=== PATIENT | male | born 1990 | race Caucasian/White ===

== ENCOUNTER 2023-02-23 12:42 | Emergency (ER) | payer SELFPAY ==
--- NOTE | 2023-02-23 12:56 | ERPHSYRPT ---
- History of Present Illness Time Seen by Provider: 02/23/23 12:56 Source: patient Exam Limitations: no limitations Physician History: This is a morbidly obese 32-year-old white male patient who was running up the stairs playing with his children when he twisted his right knee. He fell when he attempted to put weight on the right knee while ambulating. He can flex and extend the knee but the right knee hurts when he attempts to bear weight. Patient also has a second issue and that is 2 to 3-day history of left lower abdominal wall cellulitis. 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 He has been taking old Keflex prescription for the last 2 days. The site is not worsening but its not resolving either. He has minimal pain present. He is unsure if there was an insect bite to this area. Patient has a history of diabetes, asthma and hypertension. He denies chest pain and he denies shortness of breath. Occurred: just prior to arrival Reason for Fall: tripped Injuries/Pain Location: lower extremity Loss of Consciousness: no loss of consciousness (Right knee) Severity of Pain-Max: mild (To moderate) Severity of Pain-Current: mild (To moderate) Modifying Factors: Improves With: other (Attempting to bear weight worsens pain) Allergies/Adverse Reactions: amoxicillin Allergy (Verified 02/23/23 13:57) Home Medications: Albuterol 8 gm Mdi Hfa [Ventolin Hfa MDI] 2 puffs DAILY 09/20/15 [History] Aspirin 81 gm Chew [Baby Aspirin 81 mg Chew] 1 ea DAILY 09/20/15 [History] Lisinopril 10 mg [Zestril 10 MG] 1 ea DAILY 09/20/15 [History] Hx Tetanus, Diphtheria Vaccination/Date Given: Yes Hx Influenza Vaccination/Date Given: Yes Hx Pneumococcal Vaccination/Date Given: No Travel Risk - International Travel Have you traveled outside of the country in past 3 weeks: No - Coronavirus Screening Are you exhibiting any of the following symptoms?: No Close contact with a COVID-19 positive Pt in past 14-21 Days: No - Review of Systems Constitutional: No Symptoms Eyes: No Symptoms Ears, Nose, & Throat: No Symptoms Respiratory: No Symptoms Cardiac: No Symptoms Abdominal/Gastrointestinal: No Symptoms Genitourinary Symptoms: No Symptoms Musculoskeletal: Fall, Injury (Right knee) Skin: Cellulitis Neurological: No Symptoms (Left lower abdominal wall) Psychological: No Symptoms Endocrine: No Symptoms Hematologic/Lymphatic: No Symptoms Immunological/Allergic: No Symptoms All Other Systems: Reviewed and Negative - Past Medical History Pertinent Past Medical History: Yes Cardiac History: Myocardial Infarction ([place]) Respiratory History: Asthma Other Medical History: [place] at 20 years old - Past Surgical History Past Surgical History: Yes Other Surgical History: Tonsillectomy, Transesopageal echocardiogram. - Social History Smoking Status: Never smoker Exposure to second hand smoke: No Drug Use: none Patient Lives Alone: No - Nursing Vital Signs Nursing Vital Signs: Initial Vital Signs Temperature 97.5 F 02/23/23 14:00 Pulse Rate 71 02/23/23 14:00 Respiratory Rate 18 02/23/23 14:00 Blood Pressure 130/101 02/23/23 14:00 O2 Sat by Pulse Oximetry 96 02/23/23 14:00 Pain Scale Pain Intensity 5 - [place] Coma Score Best Eye Response ([place]): (4) open spontaneously Best Verbal Response ([place]): (5) oriented Best Motor Response ([place]): (6) obeys commands Gurwinder Total: 15 - Physical Exam General Appearance: no apparent distress, alert, anxiety, obese Head Injury: no evidence of injury Eye Exam: PERRL/EOMI, eyes nml inspection ENT Exam: airway nml, nml ext.inspection Neck Exam: supple, trachea midline, full range of motion, normal alignment, normal inspection Respiratory/Chest Exam: normal breath sounds, No chest tenderness, No respiratory distress Gastrointestinal Exam: soft, normal bowel sounds, No tenderness Rectal Exam: not done Back Exam: normal inspection, normal range of motion, No CVA tenderness, No vertebral tenderness Extremity Exam: normal inspection, normal range of motion, pelvis stable Neurologic Exam: alert, oriented x 3, cooperative, poultry boner II-XII nml as tested, normal mood/affect, nml cerebellar function, nml station & gait, sensation nml Skin Exam: warm, dry, other (cellulitis of left lower abdominal wall) SpO2 Interpretation: normal O2 Delivery: Room Air - Course Nursing assessment & vital signs reviewed: Yes Ordered Tests: Active Orders 24 hr Category Date Time Status KNEE (1 OR 2 VIEW) Stat Exams 02/23/23 14:22 Completed - Progress Progress: improved, pain not gone completely Progress Note: 02/23/23 15:36 The x-ray was interpreted by the radiologist. There is no evidence of any acute fracture or dislocation. This patient's medical issue is 1 of low complexity. The level complexity in the work-up performed is based on review of the patient's past medical history, review the patient's medication list, review of the patient's drug allergy list, history of present illness and physical findings on examination. The work-up in this patient includes a knee x-ray of the right side. We will also provide the patient with a Percocet 5/325 pain medication and Bactrim DS to treat his cellulitis of the abdominal wall. Counseled pt/family regarding: diagnosis, need for follow-up, rad results Medical Desision Making - Diagnostic Testing Diagnostic test were ordered, analyzed, and reviewed by me: Yes Radiological Interpretation: Reviewed by me, Teleradiologist Report - Risk of complications The pt has a mod risk of morbidity or mortality based on: Need for prescription drug management - Departure Departure Disposition: Home Clinical Impression: Right knee sprain, Cellulitis of abdominal wall Condition: Stable Critical Care Time: No Referrals: [facility] [Primary Care Provider] - Follow up/PCP as directed Additional Instructions: Ice pack to right knee 3 times a day for the next 48 hours. If the pain persist beyond this time, you may follow-up in the [facility] orthopedic clinic Monday through Monday 8 AM to 10 AM for further evaluation management. It is a walk-in clinic and you do not need to have an appointment. Take your medication as prescribed. Call your primary care provider tomorrow, 02/24/2023, for further evaluation and management. Continue your ibuprofen as prescribed. Prescriptions: Oxycodone HCl/Acetaminophen [Percocet 5-325 mg Tablet] 1 each PO Q8H PRN PRN #6 tablet MDD 3 PRN Reason: Moderate To Severe Pain Smz/Tmp Ds Tablet [Bactrim Ds Tablet] 1 udtab PO BID #14 tablet
[2023-02-23 14:02] VITALS: RESP 18
--- NOTE | 2023-02-23 14:48 | XRAY ---
Indication: Pain following fall. Comparison: None 2 view right knee demonstrates mild anterolateral subcutaneous venous varicosities. No other bony, articular, or soft tissue abnormalities.
[2023-02-23] MEDS ORDERED: PERCOCET TABLET 5/325MG PO STA (15:41)
[2023-02-23] MEDS ORDERED: BACTRIM DS TABLET PO ONE ×2 (15:41→15:57)
[2023-02-23] MEDS ORDERED: PERCOCET TABLET 5/325MG ONE (15:57)
[2023-02-23 16:08] VITALS: PULSE 83; TEMP 98; O2SAT 100
[2023-02-23 16:09] VITALS: BP 90/52
== END 2023-02-23 16:08 | disposition home or self-care (01) ==
LOC: ED 12:42
DX: S83.91XA Sprain of unspecified site of right knee, initial encounter (principal); X50.0XXA Overexertion from strenuous movement or load, initial encounter; Y93.83 Activity, rough housing and horseplay; L03.311 Cellulitis of abdominal wall; E11.9 Type 2 diabetes mellitus without complications; I10 Essential (primary) hypertension; Z79.891 Long term (current) use of opiate analgesic; Z79.899 Other long term (current) drug therapy
CPT/HCPCS: 73560; 99283; 99291; A9270-GY

== ENCOUNTER 2024-07-14 10:58 | Emergency (ER) | payer OTHER ==
--- NOTE | 2024-07-14 11:03 | ERPHSYRPT ---
- History of Present Illness Time Seen by Provider: 07/14/24 11:02 Source: patient, family Exam Limitations: no limitations Physician History: Pt had onset of cough with vomiting and fever, today and came to ER for evaluation today. Coughing caused some pain with cough in abdomen but none at rest and nontender to palpation without peritoneal signs. Discussed with pt and available family risks and benefits of testing/Tx including swabs for Covid, RSV, Flu and Strep, and zofran and duoneb, and they wish to proceed so these are ordered and he wishes to hold off on CXR for now. Results discussed with pt and available family. Timing/Duration: today Cough Quality/Degree: dry cough Possible Cause: no prior episodes Modifying Factors: Improves With: coughing Associated Symptoms: fever, cough, headache, nasal congestion, No shortness of breath Allergies/Adverse Reactions: amoxicillin Allergy (Verified 07/14/24 11:17) Hx Tetanus, Diphtheria Vaccination/Date Given: Yes Hx Influenza Vaccination/Date Given: Yes Hx Pneumococcal Vaccination/Date Given: No - Review of Systems Constitutional: Fever, No Chills Eyes: No Symptoms Ears, Nose, & Throat: No Symptoms, No Throat Pain, No Throat Swelling, No Painful Swallowing, No Stridor Respiratory: Cough, No Dyspnea Cardiac: No Chest Pain, No Edema, No Syncope Abdominal/Gastrointestinal: Nausea, Vomiting, No Abdominal Pain, No Diarrhea Genitourinary Symptoms: No Dysuria Musculoskeletal: No Back Pain, No Neck Pain Skin: No Rash Neurological: Headache, No Dizziness, No Focal Weakness, No Sensory Changes Psychological: No Symptoms Endocrine: No Symptoms Hematologic/Lymphatic: No Symptoms Immunological/Allergic: No Symptoms All Other Systems: Reviewed and Negative - Past Medical History Pertinent Past Medical History: Yes Cardiac History: Myocardial Infarction ([place]) Respiratory History: Asthma Endocrine Medical History: Diabetes Type II Other Medical History: [place] at 20 years old - Past Surgical History Past Surgical History: Yes Other Surgical History: Tonsillectomy, Transesopageal echocardiogram. - Social History Smoking Status: Never smoker Exposure to second hand smoke: No Drug Use: none Patient Lives Alone: No - Nursing Vital Signs Nursing Vital Signs: Initial Vital Signs Blood Pressure 120/87 07/14/24 11:11 O2 Sat by Pulse Oximetry 99 07/14/24 11:11 Pain Scale Pain Intensity 7 - Physical Exam General Appearance: no apparent distress, alert Eye Exam: PERRL/EOMI, eyes nml inspection Ears, Nose, Throat Exam: normal ENT inspection, TMs normal, pharynx normal, moist mucous membranes Neck Exam: normal inspection, non-tender, supple, full range of motion Respiratory Exam: normal breath sounds, lungs clear, No respiratory distress Cardiovascular Exam: regular rate/rhythm, normal heart sounds Gastrointestinal/Abdomen Exam: soft, No tenderness, No distention, No mass, No guarding, No pulsatile mass, No rebound Back Exam: normal inspection, No CVA tenderness, No vertebral tenderness Extremity Exam: normal inspection, normal range of motion Neurologic Exam: alert, oriented x 3, cooperative, normal mood/affect, sensation nml, No motor deficits Skin Exam: normal color, warm, dry, No rash Lymphatic Exam: No adenopathy SpO2 Interpretation: normal SpO2: 99 O2 Delivery: Room Air - Course Nursing assessment & vital signs reviewed: Yes Ordered Tests: Active Orders 24 hr Category Date Time Status Pulse Oximetry (ED) STAT Care 07/14/24 11:43 Active MONO SCREEN Stat Lab 07/14/24 Completed Respiratory Therapy Assessment DAILY RT 07/14/24 12:15 Active Medication Summary Discontinued Medications Generic Name Dose Route Start Last Admin Trade Name Freq PRN Reason Stop Dose Admin Hydrocodone Bitart/Acetaminophen 2 tab 07/14/24 13:05 07/14/24 13:13 Hydrocodone/Apap 5/325 1 Tab Tablet PO 07/14/24 13:06 Not Given STAT ONE Hydrocodone Bitart/Acetaminophen Confirm 07/14/24 13:05 Hydrocodone/Acetaminophen 5 Ml Udcup Administered 07/14/24 13:06 Dose 10 ml .ROUTE .STK-MED ONE Hydrocodone Bitart/Acetaminophen 10 ml 07/14/24 13:09 07/14/24 13:12 Hydrocodone/Acetaminophen 5 Ml Udcup PO 07/14/24 13:10 10 ml STAT STA Administration Albuterol/Ipratropium 3 ml 07/14/24 11:45 07/14/24 12:12 Ipratropium/Albuterol Sulfate 3 Ml Ampul.Neb IH 07/14/24 11:46 3 ml STAT ONE Administration Albuterol/Ipratropium Confirm 07/14/24 12:11 Ipratropium/Albuterol Sulfate 3 Ml Ampul.Neb Administered 07/14/24 12:12 Dose 3 ml IH .STK-MED ONE Ondansetron HCl 4 mg 07/14/24 11:45 07/14/24 12:02 Zofran 4 Mg/Udtablet Orally Disintegrating PO 07/14/24 11:46 4 mg STAT ONE Administration Ondansetron HCl Confirm 07/14/24 12:01 Zofran 4 Mg/Udtablet Orally Disintegrating Administered 07/14/24 12:02 Dose 4 mg .ROUTE .STK-MED ONE Lab/Rad Data: Laboratory Results 07/14/24 07/14/24 Range/Units Unknown 12:20 Monoscreen NEGATIVE (NEGATIVE) Influenza Type A Ag POSITIVE A (NEGATIVE) Influenza Type B Ag NEGATIVE (NEGATIVE) RSV (PCR) NEGATIVE (NEGATIVE) SARS-CoV-2 (PCR) NEGATIVE (NEGATIVE) Group A Strep Antibody NOT DETECTED (NEGATIVE) - Progress Progress: improved, re-examined Air Movement: good Progress Note: 07/14/24 14:21 pt feels better now without nausea or abd tenderness or pain or shortness of breath. Blood Culture(s) Obtained: No Antibiotics given: No Counseled pt/family regarding: lab results, diagnosis, need for follow-up Medical Desision Making - Independent Historian Additional History obtained from: Family - Discussion of managment Reviewed:: Test results, Need for additional workup Agreed on:: Treatment plan, need for follow-up - Departure Departure Disposition: Home Clinical Impression: Influenza A Condition: Good Critical Care Time: No Instructions: Cough, Adult (DC), Flu in adults - ED discharge instructions Additional Instructions: We are sending a prescription to treat your flu. Rest and drink lots of fluids. followup with your Dr. of not improving or Return meantime especially if short of breath, dizzy, vomitiing persists, trouble swallowing or any other concerns. Prescriptions: Oseltamivir 75 mg [Tamiflu 75MG Capsule] 75 mg PO BID #10 cap
[2024-07-14] MEDS ORDERED: ZOFRAN ODT 4 MG ONE (12:01)
[2024-07-14] MEDS: ZOFRAN ODT 4 MG PO ONE (12:02)
[2024-07-14] MEDS ORDERED: DUONEB 0.5-3 MG/3 ml Neb IH ONE (12:11)
[2024-07-14] MEDS: DUONEB 0.5-3 MG/3 ml Neb IH ONE (12:12)
[2024-07-14 13:02] LABS: Group A Strep NOT DETECTED (NEGATIVE)
[2024-07-14] MEDS ORDERED: HYDROCODONE-ACETAMIN 2.5-108/5 ML SOLUTION ONE (13:05)
[2024-07-14] MEDS: HYDROCODONE-ACETAMIN 2.5-108/5 ML SOLUTION PO STA (13:12)
[2024-07-14 13:13] LABS: INFLUENZA B NEGATIVE (NEGATIVE); RESPIRATORY SYNCTIAL VIRUS NEGATIVE (NEGATIVE); SARS-CoV-2 Xpert Express NEGATIVE (NEGATIVE)
[2024-07-14] MEDS: NORCO 5/325 MG PO ONE (13:13)
[2024-07-14 13:20] LABS: INFLUENZA A POSITIVE (NEGATIVE)
[2024-07-14 14:40] VITALS: BP 107/71; PULSE 110; RESP 18; O2SAT 98
== END 2024-07-14 14:39 | disposition home or self-care (01) ==
LOC: ED 10:58
DX: J10.1 Influenza due to other identified influenza virus with other respiratory manifestations (principal); R05.1 Acute cough; R11.2 Nausea with vomiting, unspecified; R50.9 Fever, unspecified; E11.9 Type 2 diabetes mellitus without complications; Z79.899 Other long term (current) drug therapy
CPT/HCPCS: 0241U; 36415; 86308; 87651; 94640; 94760; 99284; Q0162; A9270-GY